=== PATIENT | female | born 1965 | race Hispanic/Latino ===

== ENCOUNTER 2025-07-18 13:45 | Emergency (ER) | payer OTHER ==
[~2025-07-18] VITALS: Ht 154.9 cm; Wt 64.9 kg
[2025-07-18 14:21] LABS: IMMATURE GRANULOCYTE ABSOLUTE 0.02 K/uL (0-1); NUCLEATED RED BLOOD CELLS 0.0 % (0.0-0.19); PLATELET COUNT (AUTO) 213 K/uL (130-400); RED BLOOD CELL COUNT(AUTO) 3.67 MIL/uL (4.00-5.50); RED CELL DISTRIBUTION WIDTH 13.0 % (11.0-15.5); WHITE BLOOD COUNT (AUTO) 4.6 K/uL (4.8-10.8)
[2025-07-18 14:30] LABS: CREATININE 0.6 mg/dL (0.5-1.0); GLOMERULAR FILTR. RATE CALC 103.0 mL/min (>90); GLUCOSE,RANDOM 97.0 mg/dL (70-105); SODIUM SERUM 136.0 mmol/L (136-145); UREA NITROGEN, BLOOD 13.0 mg/dL (7-18)
--- NOTE | 2025-07-18 14:30 | HMCIMG ---
EXAM: CT Head Without IV contrast. CLINICAL HISTORY: syncope TECHNIQUE: Axial computed tomography images of the head/brain without intravenous contrast. COMPARISON: None provided. FINDINGS: BRAIN: No evidence of acute hemorrhage. No mass lesion. No CT evidence for acute territorial infarct. No midline shift or extra-axial collections. VENTRICLES: No hydrocephalus. ORBITS: The orbits are unremarkable. SINUSES AND MASTOIDS: The paranasal sinuses and mastoid air cells are clear. BONES: No fracture. SOFT TISSUES: Unremarkable. IMPRESSION: No acute intracranial abnormality. /[place]
[2025-07-18 14:33] LABS: CREATINE KINASE, TOTAL 115.0 U/L (21-232)
--- NOTE | 2025-07-18 14:34 | HMCIMG ---
EXAM: CR Chest, 1 View. CLINICAL HISTORY: cp COMPARISON: None provided. FINDINGS: LUNGS: There is no mass, infiltrate, or acute pulmonary abnormality. PLEURAL SPACES: No evidence of pleural effusion or pneumothorax. MEDIASTINUM: The cardiomediastinal silhouette is within normal limits. BONES: No acute osseous abnormality. IMPRESSION: No acute cardiopulmonary pathology is evident. /[place]
--- NOTE | 2025-07-18 14:41 | EKG ---
[facility] Test Date: 2025-07-18 Test Time: 14:27:28 Pat Name: RISSA JUAREZ Department: ED Room: Gender: F Climbing Guide: 9920 : 1965 Requested By: CALVIN SUTTON Order Number: [id number] Reading MD: Akua Brunner Measurements Intervals [place] Rate: 80 P: 66 ME: 148 QRS: 54 QRSD: 72 T: 86 QT: 375 QTc: 432 Interpretive Statements Normal sinus rhythm Abnormal T, consider ischemia, lateral leads ST elevation, consider inferior injury No previous ECG available for comparison Electronically Signed On 07-19-2025 09:26:10 SENIOR PRIVATE CLIENT ADVISOR by Akua Brunner Please click the below link to view image of tracing.
--- NOTE | 2025-07-18 14:52 | ERN ---
General Chief Complaint: Mechanical Fall Stated Complaint: FALL Time Seen by MD: 13:59 Source: patient History of Present Illness Initial Comments Patient is a 60-year-old female coming in after she has a syncopal episode. Patient was at [employer] passed out hit herself in the back of the head. Complaining of headache. Patient is a alert and oriented. Allergies: Coded Allergies: No Known Allergies (Unverified Allergy, Unknown, 07/18/25) Past Medical History Past Medical History: Depression, Schizophrenia Past Surgical History: Other ROS Dictation CONSTITUTIONAL: No chills, no fever, weakness, no diaphoresis, no malaise. HEAD/FACE: No signs of trauma. EENT: No eye pain, no blurred vision, no tearing, no double vision, no ear pain, no ear discharge, no nose pain, no nasal congestion, no throat pain, no throat swelling, no mouth pain. RESPIRATORY: No cough, no orthopnea, no SOB, no stridor, no wheezing. CARDIOVASCULAR: No chest pain, no edema, no palpitations, no syncope. GASTROINTESTINAL/ABDOMINAL: No abdominal pain, no constipation, no diarrhea, no nausea, no vomiting. GENITOURINARY: No abnormal discharge, no dysuria, no frequent urination, no hematuria. No complaints of pain in the genitals. MUSCULOSKELETAL: No back pain, no gout, no joint pain, no joint swelling, no muscle pain, no muscle stiffness, no neck pain. INTEGUMENTARY: No change in color, no change in hair/nails, no dryness, no lesion, no lumps, no rash. NEUROLOGICAL/PSYCH: No anxiety, not depressed, no emotional problem, no headache, no numbness, no pre-existing deficit, no history of seizures, no tremors, no weakness. HEMATOLOGIC/LYMPHATIC: Not anemic, no history of blood clots, no apparent bleeding, no bruising, glands not swollen. All Systems Negative, Except as Noted. Physical Exam Physical Exam Dictation VITAL SIGNS: Reviewed. GENERAL APPEARANCE: Alert, oriented x3, no acute distress, obese. HEAD AND FACE: Non-traumatic. EYES: PERRL, pink conjunctivas, eyelid no trauma, anterior chamber clear. EARS: Pinnas intact and no signs of trauma or erythema. Ear canals clear and no discharge. TMs no erythema. NOSE: No discharge, no bleeding. OROPHARYNX: Mouth normal, teeth no caries, tongue pink. Pharynx clear, no erythema. Tonsils no exudates, no abscesses noted. Mucous membrane moist. NECK: Supple, non-tender, no thyromegaly, no masses, no JVD, no bruits. BREAST: Deferred. CHEST: No tenderness, no crepitus, no paradoxical movement, no retractions. LUNGS: Clear, well-ventilated, symmetric, no rales, no wheezing, no rhonchi, no stridor, good breath sounds bilaterally. HEART: Regular rate, regular rhythm, no murmur, no gallops. VASCULAR: No peripheral edema. ABDOMEN: Soft, positive bowel sounds, nondistended, no guarding, nontender, no r ebound, no masses no hepatomegaly, no splenomegaly, no Reaves's sign, no hernias. RECTAL: Deferred. GENITAL: Deferred. NEUROLOGICAL: Normal speech, gross motor function intact, gross sensory function intact. MUSCULOSKELETAL: Neck nontender, full range of motion, back nontender, full range of motion. EXTREMITIES: Nontender, full range of motion. SKIN: Color pink, dry, no turgor, no rash, no lacerations, no abrasions, no contusions. LYMPHATICS: Deferred. Results Laboratory and Microbiology Lab and Micro Result Laboratory Tests Test 07/18/25 14:10 07/18/25 14:52 White Blood Count 4.6 K/uL (4.8-10.8) L Red Blood Count 3.67 MIL/uL (4.00-5.50) L Hemoglobin 11.1 g/dL (12.0-16.0) L Hematocrit 35.4 % (36-48) L Mean Corpuscular Volume 96.5 fL (79-99) Mean Corpuscular Hemoglobin 30.2 pg (27.0-33.0) Mean Corpuscular Hemoglobin Concent 31.4 g/dL (32.0-36.0) L Red Cell Distribution Width 13.0 % (11.0-15.5) Platelet Count 213 K/uL (130-400) Mean Platelet Volume 10.2 fL (7.5-10.5) Immature Granulocyte % (Auto) 0.4 % (0-1) Neutrophils (%) (Auto) 60.4 % (40.0-77.0) Lymphocytes (%) (Auto) 27.0 % (21.0-51.0) Monocytes (%) (Auto) 10.5 % (3.0-13.0) Eosinophils (%) (Auto) 1.3 % (0.0-8.0) Basophils (%) (Auto) 0.4 % (0.0-5.0) Neutrophils # (Auto) 2.8 K/uL (1.8-7.7) Lymphocytes # (Auto) 1.2 K/uL (1.0-4.8) Monocytes # (Auto) 0.5 K/uL (0.1-1.0) Eosinophils # (Auto) 0.06 K/uL (0.00-0.70) Basophils # (Auto) 0.02 K/uL (0.00-0.20) Absolute Immature Granulocyte (auto 0.02 K/uL (0-1) Nucleated Red Blood Cells 0.0 % (0.0-0.19) Sodium Level 136 mmol/L (136-145) Potassium Level 4.1 mmol/L (3.5-5.1) Chloride Level 98 mmol/L (101-111) L Carbon Dioxide Level 34 mmol/L (21-32) H Blood Urea Nitrogen 13 mg/dL (7-18) Creatinine 0.6 mg/dL (0.5-1.0) Glomerular Filtration Rate Calc 103 mL/min (>90) Random Glucose 97 mg/dL (70-105) Total Calcium 8.6 mg/dL (8.5-10.1) Total Creatine Kinase 115 U/L (21-232) Troponin I High Sensitivity 6 ng/L (4-50) Urine Color LIGHT-YELLOW (YELLOW) Urine Appearance CLEAR (CLEAR) Urine pH 7.0 (5.0-8.0) Urine Specific [place] 1.009 (1.001-1.031) Urine Protein NEGATIVE mg/dL (NEGATIVE) Urine Glucose (UA) NEGATIVE mg/dL (NEGATIVE) Urine Ketones NEGATIVE mg/dL (NEGATIVE) Urine Occult Blood NEGATIVE (NEGATIVE) Urine Nitrate NEGATIVE (NEGATIVE) Urine Bilirubin NEGATIVE mg/dL (NEGATIVE) Urine Urobilinogen 0.2 mg/dL (0.2-1.0) Urine Leukocyte Esterase NEGATIVE [place]/uL Urine Opiates Screen NEGATIVE (NEGATIVE) Urine Barbiturates Screen NEGATIVE (NEGATIVE) Urine Phencyclidine Screen NEGATIVE (NEGATIVE) Urine Amphetamines Screen NEGATIVE (NEGATIVE) Urine Benzodiazepines Screen NEGATIVE (NEGATIVE) Urine Cocaine Screen NEGATIVE (NEGATIVE) Urine Marijuana (THC) Screen NEGATIVE (NEGATIVE) Labs Reviewed?: Yes EKG/XRAY/US/CT/MRI X-RAY Comment IMAGING REPORT Signed PATIENT: RISSA LOPEZ MR#: [id number] : 1965 SEX: F AGE: 60 LOCATION: EDH ORDER 99 STATUS: [facility] [place] REPORT#: [id number] SERVICE [id number] REASON: cp ORDERING PHYSICIAN: CALVIN SUTTON MD PROCEDURE: CXR1VW - CHEST 1VW EXAM: CR Chest, 1 View. CLINICAL HISTORY: cp COMPARISON: None provided. FINDINGS: LUNGS: There is no mass, infiltrate, or acute pulmonary abnormality. PLEURAL SPACES: No evidence of pleural effusion or pneumothorax. MEDIASTINUM: The cardiomediastinal silhouette is within normal limits. BONES: No acute osseous abnormality. IMPRESSION: No acute cardiopulmonary pathology is evident. /[place] DICTATED BY: MK CORCORAN Jr., MD DATE: 07/18/251532 ELECTRONICALLY SIGNED BY: MK CORCORAN Jr., MD DATE: 07/18/251532 CT Scan Comment IMAGING REPORT Signed PATIENT: RISSA LOPEZ MR#: [id number] : 1965 SEX: F AGE: 60 LOCATION: ED ORDER 99 STATUS: [facility] ER REPORT#: [id number] SERVICE [id number] REASON: syncope ORDERING PHYSICIAN: CALVIN SUTTON MD PROCEDURE: HEAD WO - CT HEAD/BRAIN W/O CONTRAST EXAM: CT Head Without IV contrast. CLINICAL HISTORY: syncope TECHNIQUE: Axial computed tomography images of the head/brain without intravenous contrast. COMPARISON: None provided. FINDINGS: BRAIN: No evidence of acute hemorrhage. No mass lesion. No CT evidence for acute territorial infarct. No midline shift or extra-axial collections. VENTRICLES: No hydrocephalus. ORBITS: The orbits are unremarkable. SINUSES AND MASTOIDS: The paranasal sinuses and mastoid air cells are clear. BONES: No fracture. SOFT TISSUES: Unremarkable. IMPRESSION: No acute intracranial abnormality. /[place] DICTATED BY: YANA FRANK MD DATE: 07/18/251528 ELECTRONICALLY SIGNED BY: YANA FRANK MD DATE: 07/18/25 152 [facility] MDM: Differential diagnosis: Fall , syncope, dehydration, Rationale: Tests considered and ordered secondary to shared decision making include: Previous outside records reviewed: Old ER visits. Risk of complication and/or morbidity or mortality of patient management: None Medications-Per medication reconciliation Need for hospitalization: Patient does not meet criteria for hospitalization. Need for emergency major/minor surgery: No Patient is a 6-year-old female coming in to be evaluated for syncopal episode. Cardiac workup with a normal limits CT of the head was done using patient presented with a headache initially. Based on the The [place] Syncope rule identifies patients who cannot be considered low risk of adverse outcomes after a syncopal event. Criteria include: History of congestive heart failure Hematocrit <30% Abnormal EKG (New ECG change from any source, any non-sinus rhythm on EKG or monitoring) Symptoms of shortness of breath Systolic BP <90 mmHg at triage If any of these criteria are noted, patient cannot be considered "low risk" of a serious outcome. In this study, a serious outcome is defined as ", myocardial infarction, arrhythmia, pulmonary embolism, stroke, subarachnoid hemorrhage, significant hemorrhage, or any condition causing a return ED visit and hospitalization for a related event." While the original paper identified a 96% sensitivity and 62% specificity for serious outcome (with negative predictive value 99.2% and positive predictive value 24.8%), validation studies have reported inconsistent results. Probable cause is dehydration since mucosal membrane is dry. Patient received a liter of IV fluids we will be discharged in stable condition patient states he feels better. ED Course Orders Procedure Category Date Status Time Cbc With Differential LAB 07/18/25 Complete 13:59 Chest 1vw RAD 07/18/25 Resulted 13:59 12 Lead Ekg Tracing- EKG 07/18/25 Complete Technical 13:59 Creatine Kinase, Total LAB 07/18/25 Complete 13:59 Troponin I High LAB 07/18/25 Complete Sensitivity 13:59 Urinalysis Profile LAB 07/18/25 Complete 13:59 Basic Metabolic Panel LAB 07/18/25 Complete 13:59 Ct Head/Brain W/O CT 07/18/25 Resulted Contrast 13:59 Drug Screen Urine LAB 07/18/25 Complete 14:34 0.9%Nacl 1000ml (Ns PHA 07/18/25 Logged 1000ml) 15:30 Current Medications Medications (Trade) Dose Ordered Sig/Arthur Route PRN Reason Start Time Stop Time Status Last Admin Dose Admin Sodium Chloride 1,000 ml @ 0 mls/hr ONCE ONCE IV 07/18/25 15:30 07/18/25 15:31 UNV Vital Signs Date Time Temp Pulse Resp B/P (MAP) Pulse Ox O2 Delivery O2 Flow Rate FiO2 07/18/25 14:36 97.9 84 16 111/57 99 Room Air* 0 21 07/18/25 13:50 98.2 80 16 117/62 99 Room Air DX & DISP Disposition: Discharge Departure Impression: Primary Impression: Dehydration Additional Impressions: Syncope, near, Syncope, Psychiatric illness Condition: Stable Additional Instructions: FOLLOW-UP WITH PRIMARY CARE PROVIDER IN 1 TO 2 DAYS. TAKE MEDICATIONS DIRECTED HERE IN THE EMERGENCY ROOM. OKAY TO CONTINUE HOME MEDICATIONS UNLESS OTHERWISE DISCUSSED DURING YOUR VISIT IN THE EMERGENCY ROOM TODAY. RETURN TO YOUR NEAREST EMERGENCY ROOM IF SYMPTOMS WORSEN OR IF THERE IS NO IMPROVEMENT. CALL 911 IF YOU NEED IMMEDIATE ASSISTANCE. TAKE TYLENOL [id number] NEEDED AND IF NO CONTRAINDICATIONS ARE PRESENT. INCREASE ORAL HYDRATION. A WOUND CULTURE OR URINE CULTURE WAS ORDERED HERE IN THE EMERGENCY ROOM DEPARTMENT PLEASE FOLLOW-UP WITH PRIMARY CARE PROVIDER AND ADVISE THEM TO GET REPORTS FROM OUR FACILITY. IF YOU HAD ANY CUBA WRAP/SPLINTS THAT WERE APPLIED HERE, PLEASE DO NOT REMOVE THEM UNTIL YOU SEE YOUR PRIMARY CARE OR SPECIALTY. Referrals: Referrals: SELF,REFERRAL (PCP) KARI KRISHNA MD Time of Disposition: 15:34 CALVIN SUTTON MD Jul 18, 2025 14:52
[2025-07-18 15:15] LABS: APPEARANCE,URINE CLEAR (CLEAR); GLUCOSE, URINE (UA) NEGATIVE (NEGATIVE); LEUKOCYTE ESTERASE ,URINE NEGATIVE Leu/uL (NEGATIVE); NITRATE,URINE NEGATIVE (NEGATIVE); OCCULT BLOOD,URINE NEGATIVE (NEGATIVE)
[2025-07-18 15:16] LABS: ADD UA MICROSCOPIC NO
[2025-07-18 15:21] LABS: AMPHET/METH SCREEN,URINE NEGATIVE (NEGATIVE); BARBITURATE SCREEN, URINE NEGATIVE (NEGATIVE); CANNABINOID SCREEN,URINE NEGATIVE (NEGATIVE); COCAINE SCREEN,URINE NEGATIVE (NEGATIVE)
[2025-07-18] MEDS: 0.9%NACL 1000ML 1,000 ML IV ONE (15:34)
--- NOTE | 2025-07-18 16:38 | NUR ---
report was called in to Ivon Burch at [facility].
--- NOTE | 2025-07-18 16:39 | NUR ---
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
[2025-07-18 16:49] VITALS: BP 117/55; PULSE 77; RESP 18; TEMP 97.9; O2SAT 99
== END 2025-07-18 17:05 | disposition home or self-care (01) ==
LOC: EDH 13:45
DX: E86.0 Dehydration (principal); R55 Syncope and collapse; F20.9 Schizophrenia, unspecified; R51.9 Headache, unspecified; W18.09XA Striking against other object with subsequent fall, initial encounter; Y93.89 Activity, other specified; Y92.128 Other place in nursing home as the place of occurrence of the external cause; Y99.8 Other external cause status
CPT/HCPCS: 99285; 96360; 70450; 71045; 82550; 84484; 80048; 80305; 85025; 81003; 36415; 93005; J7030